=== PATIENT | male | born 1955 | race Two or more races ===

== ENCOUNTER 2025-03-15 16:29 | Emergency (ER) | payer MEDICARE, MEDICAID, SELFPAY ==
[2025-03-15] VITALS (9 sets, daily range): BP systolic 139–169; BP diastolic 83–98; PULSE 102–111; RESP 15–23; TEMP 37; O2SAT 93–98
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
--- NOTE | 2025-03-15 18:42 | PD.EDADDENDU ---
Emergency Room Addendum <Shahla Baig - Last Filed: 03/15/25 21:33> Addendum Narrative: 1800: Care assumed from Dr. Ennis (emergency physician). Past medical, surgical, social and family history reviewed. Vitals and home medications reviewed. Results and treatment plan discussed. I will assume the care of the patient at this time and will follow the patient, pending medical clearance (5150 Hold). The following addendum documentation note is intended to reflect any pending information, findings, or radiology results not included in the patient?s initial chart by the previous shift scribe. The patient had access and provided personal hygiene, shower, food, water, and daily medications. RADIOLOGY Findings: No significant ventricular enlargement. Again noted large old infarct in the right middle cerebral artery distribution with ipsilateral ventricular dilatation Small old infarct left cerebellar hemisphere Intra-axial or extra-axial hemorrhage density is not seen. No mass effect or midline shift Basal cisterns are not remarkable. Fourth ventricle is midline. Cranial vault intact. Impression: No interval acute hemorrhage, mass effect or midline shift As clinically warranted, brain MRI follow-up would best assess for acute ischemic change <Hood Mckeon DO - Last Filed: 03/15/25 23:58> Addendum Narrative: 1800: Care assumed from Dr. Ennis (emergency physician). Past medical, surgical, social and family history reviewed. Vitals and home medications reviewed. Results and treatment plan discussed. I will assume the care of the patient at this time and will follow the patient, pending medical clearance (5150 Hold). The following addendum documentation note is intended to reflect any pending information, findings, or radiology results not included in the patient?s initial chart by the previous shift scribe. The patient had access and provided personal hygiene, shower, food, water, and daily medications. RADIOLOGY Findings: No significant ventricular enlargement. Again noted large old infarct in the right middle cerebral artery distribution with ipsilateral ventricular dilatation Small old infarct left cerebellar hemisphere Intra-axial or extra-axial hemorrhage density is not seen. No mass effect or midline shift Basal cisterns are not remarkable. Fourth ventricle is midline. Cranial vault intact. Impression: No interval acute hemorrhage, mass effect or midline shift As clinically warranted, brain MRI follow-up would best assess for acute ischemic change Case was signed out to me by Dr. Hendrix. Patient is already on a 5150 hold for standing in traffic today. Patient is very combative and noncompliant and does not follow commands or answer questions simply. I am unsure whether or not this patient has a history of psychosis. We need to do a workup on this patient. Patient received 300 mg of ketamine IM which allowed us to establish an IV and draw blood obtain a urinalysis and a CAT scan of the brain. CAT scan of the brain was negative. Urinalysis showed no infection. Urinary tox screen was negative. Blood alcohol level is negative. There appears to be no organic cause for the patient's psychosis. hosted services analyst consult has been ordered for this patient's apparent psychotic state and probable need for psychiatric placement.
--- NOTE | 2025-03-15 19:18 | XR_ITS ---
Examination: CT brain head without contrast. 2-D sagittal coronal reconstructions Date and time of exam:March 15, 2025, and 195 hrs., Comparison May 11, 2023 Indications: Altered mental status today CTDI: vol (mGy):50.8 DLP: (mGycm):1081 Technique: Multiple CT axial sections of the brain have been obtained, 5 mm slice thickness. Contrast has not been administered. 2-D sagittal, coronal reconstructions have been obtained Low dose protocols were performed. One or more of the following dose reduction techniques were used; automated exposure control, adjustment of the mA and/or KV according to patient size, use of iterative reconstruction technique. Findings: No significant ventricular enlargement. Again noted large old infarct in the right middle cerebral artery distribution with ipsilateral ventricular dilatation Small old infarct left cerebellar hemisphere Intra-axial or extra-axial hemorrhage density is not seen. No mass effect or midline shift Basal cisterns are not remarkable. Fourth ventricle is midline. Cranial vault intact. Impression: No interval acute hemorrhage, mass effect or midline shift As clinically warranted, brain MRI follow-up would best assess for acute ischemic change
[2025-03-15] MEDS: KETAMINE 50 MG/ML VIAL 10 ML 300 MG IM (19:36)
[2025-03-15 19:56] LABS: Collection Type, Urine Clean Catch; Squamous Epithelial Cell,Urine 0 /hpf (0-5)
[2025-03-15 19:57] LABS: Basophils # (Auto) 0.0 Thou/mm3 (0.0-0.2); Basophils % (Auto) 0 % (0-2.5); Eosinophils # (Auto) 0.0 Thou/mm3 (0.0-0.5); Eosinophils % (Auto) 0 % (0-10); Hematocrit 45.9 % (41.0-53.0); Hemoglobin 15.3 g/dL (13.5-16.0); Immature Granulocytes Auto 0.03 Thou/mm3 (0.00-0.00); Lymphocytes # (Auto) 1.8 Thou/mm3 (1.0-4.8); Lymphocytes % (Auto) 16 % (10-50); Mean Corpuscular HGB Conc 33.3 g/dl (31.0-37.0); Mean Corpuscular Hemoglobin 30.7 pg (25.0-35.0); Mean Corpuscular Volume 92 fL (80-100); Monocytes # (Auto) 0.9 Thou/mm3 (0.0-0.8); Monocytes % (Auto) 8 % (0-12); Neutrophils # (Auto) 8.5 Thou/mm3 (1.8-7.7); Neutrophils % (Auto) 76 % (37-80); Nucleated Red Blood Cell # 0.00 Thou/mm3 (0.00-0.00); Nucleated Red Blood Cell % 0 /100 WBC (0); Platelet Count 175 Thou/mm3 (140-440); RDW Standard Deviation 43.9 fL (35.1-43.9); Red Blood Count 4.99 Miln/mm3 (4.50-5.90); White Blood Count 11.2 Thou/mm3 (3.8-10.6)
[2025-03-15 20:03] LABS: Amorphous Crystals,Urine Present (Absent); Bilirubin,Urine Negative (Negative); Blood,Urine 1+ (Negative); Clarity,Urine Turbid (Clear/Hazy); Color,Urine Yellow (Lt Yel-Yel); Culture Indicated,Urine Not Indicated; Glucose, Urine Negative (Negative); Ketones,Urine Negative (Negative); Leukocyte Esterase,Urine Negative (Negative); Nitrite,Urine Negative (Negative); PH,Urine 7.5 (5.0-7.0); Protein,Urine Negative (Neg - Trace); RBC,Urine 56 /hpf (0-3); Specific Gravity,Urine 1.024 (1.001-1.035); Urobilinogen,Urine Negative mg/dL (0.0-1.0); WBC,Urine 8 /hpf (0-5)
--- NOTE | 2025-03-15 20:07 | PC.NURSE ---
pt back in room from ct. EYES OPEN NORMAL REPSIRATIONS 3 POINT RESTRAINTS.
[2025-03-15 20:08] LABS: Amphetamine/Methamp Scrn,U Negative (Negative); Barbiturate Screen,Urine Negative (Negative); Benzodiazepines Screen,Urine Negative (Negative); Benzoylecgonine Screen, Ur Negative (Negative); Fentanyl Screen,Urine Negative (Negative); Opiate Screen,Urine Negative (Negative); THC Screen,Urine Negative (Negative)
[2025-03-15 20:24] LABS: Alanine Aminotransferase 15 U/L (10-49); Albumin, Serum 4.2 gm/dL (3.4-4.8); Albumin/Globulin Ratio 1.4 (1.2-2.2); Alcohol, Blood Medical < 3.0 mg/dL (0-10.0); Alkaline Phosphatase 99 U/L (46-116); Anion Gap 12 (7-16); Aspartate Amino Transferase 49 U/L (0-34); BUN/Creatinine Ratio 11 Ratio (12-20); Bilirubin,Total 1.0 mg/dL (0.3-1.2); Blood Urea Nitrogen 12 mg/dL (9-23); Calcium 10.3 mg/dL (8.3-10.6); Calcium (Corrected) 10.3 mg/dL (8.5-10.1); Carbon Dioxide 25.7 mMol/L (20.0-31.0); Chloride 110 mMol/L (98-107); Creatinine (Component) 1.1 mg/dL (0.6-1.3); Globulin 2.9 gm/dL (2.3-3.5); Glucose 109 mg/dL (74-106); Osmolality,Calculated 294 (275-295); Potassium 3.9 mMol/L (3.4-5.1); Sodium 148 mMol/L (136-145); Total Protein 7.1 gm/dL (5.7-8.2); eGFR > 60 See Note
--- NOTE | 2025-03-15 23:15 | PC.NURSE ---
pt awake alert comfortable not being aggressive. doctor okd to stop restraints.
[2025-03-16] VITALS: BP 161/97; PULSE 98; RESP 18; O2SAT 98
--- NOTE | 2025-03-16 01:05 | PC.NURSE ---
ATTEMPTED TO GET VS ON PT. PT BECAME HIGHLY AGITATED, BEGAN KICKING AND HITTING STAFF. ATTEMPTED TO REDIRECT THE PT, AND PT WAS NOT COOPERATING. MD INFORMED, NEW ORDERS GIVEN.
[2025-03-16] MEDS: HALOPERIDOL LACT INJ 5 MG/ML VIAL IM (01:10)
[2025-03-16 01:40] VITALS: BP 151/71; PULSE 117; RESP 20; TEMP 36.6; O2SAT 93
[2025-03-16 05:47] VITALS: BP 164/95; PULSE 104; RESP 19; TEMP 36.9; O2SAT 95
[2025-03-16 08:00] VITALS: BP 156/90; PULSE 102; RESP 16; TEMP 36.4; O2SAT 96
[2025-03-16 10:00] VITALS: BP 151/95; PULSE 99; RESP 16; TEMP 36.4; O2SAT 94
--- NOTE | 2025-03-16 10:39 | PC.CC ---
0900-Pt is a 69 yo male who was BIBA due to being on a 5150 DTS by Felipe ESTRADA. ASW sEtrella Mahajan met with patient [id number] to complete assessment. ASW introduced self, role, and reason for assessment. ASW disclosed limits of confidentiality as well. Patient appeared alert and oriented to self, place, and situation. Patient was pleasant; his mood nervous; his behavior appeared worried. Patient?s thought process was somewhat linear and organized, but he did seem confused. No signs of delusions, paranoid or V/h. Pt denied SI/HI. Pt stated he does not remember why he was brought to the hospital. Pt reports he lives alone. Present was pts caregiver (family member) who reported he is his SS worker. The caregiver stated he does all the cooking, cleaning and grooming for the pt. Pt was viewed to be taken care of well and clean. The skin care consultant reported that he takes care of the pt daily from 8am-1pm. The skin care consultant stated that the pt left the home, after the caregiver left, and went on his wheel chair to the nearest school. Caregiver reported that the family was notified that the pt was on a 5150 Hold due to DTS. The caregiver stated he, his and brother in law will make a decision on possible SNF placement vs. home health. Caregiver stated the pt has dementia and suffered stroke a few years ago. Since the stroke, the pt has not been the same, according to the caregiver. The pt was aware where he is at, but was unsure how he got there. Pt was communicating throughout the assessment, but at times would not make sense. Pt strongly denies SI/HI and self harm. Pt denies illicit controlled substance use. ASW staffed this case with [facility], Director Carlin Maldonado and it was determined that the hold will be rescinded and a discussion about SNF vs. Home Health needs to be discussed for the safety of the pt. ASW communicated with the ER provider and he agreed. Assigned RN is aware as well as the data entry operator.
--- NOTE | 2025-03-16 11:00 | EDNOTE_ITS ---
Emergency Room Addendum Addendum Narrative: 0600: Care assumed from Dr. Mckeon, the previous shift emergency physician. Past medical, surgical, social and family history reviewed. Vitals and home medications reviewed. I will assume the care of the patient at this time, pending mental health evaluation and final disposition. Please refer to the emergency department record for history and examination from initial visit.?The following addendum documentation note is intended to reflect any pending information, findings, or radiology results not included in the patient?s initial chart. Patient has been evaluated by our social media campaign manager and rescinded the 5150 hold. States patient has been provided with community resources. Will DC home.
--- NOTE | 2025-03-16 11:03 | PC.CC ---
Addendum entered by Estrella Mahajan 03/16/25 12:30: 1145-ASW met with pt and pts son at bedside to discuss the possibility of SNF vs. Home Health. Per pts son, he stated he and his family will make that decision and he could not make that decision on his own. pts son stated he, his and sister as well as the advanced practice rn provide around the clock care for the pt, but stated it is getting more and more difficult. ASW explained home health, adult day care services and provided additional resources from local SNF facilities. Pt was present and understood the conversation. Assigned RN is aware as well. Addendum entered by Estrella Mahajan 03/16/25 11:11: 1110-Assigned RN is aware of the conversation between pt and caregiver regarding SNF vs Home health. Caregiver is willing to take the pt home. Pt is cleared from SS. Addendum entered by Estrella Mahajan 03/16/25 11:07: 1045-ASW attempted to contact the pts children who are listed on the face sheet to discuss possible SNF vs. Home health, but no one answered and the voicemails were not set up, could not leave a voice message Original Note: 0900-Pt is a 69 yo male who was BIBA due to being on a 5150 DTS by Felipe ESTRADA. ASW Estrella Mahajan met with patient [id number] to complete assessment. ASW introduced self, role, and reason for assessment. ASW disclosed limits of confidentiality as well. Patient appeared alert and oriented to self, place, and situation. Patient was pleasant; his mood nervous; his behavior appeared worried. Patient?s thought process was somewhat linear and organized, but he did seem confused. No signs of delusions, paranoid or V/h. Pt denied SI/HI. Pt stated he does not remember why he was brought to the hospital. Pt reports he lives alone. Present was pts caregiver (family member) who reported he is his SS worker. The caregiver stated he does all the cooking, cleaning and grooming for the pt. Pt was viewed to be taken care of well and clean. The healthcare administrator reported that he takes care of the pt daily from 8am-1pm. The healthcare administrator stated that the pt left the home, after the caregiver left, and went on his wheel chair to the nearest school. Caregiver reported that the family was notified that the pt was on a 5150 Hold due to DTS. The caregiver stated he, his and brother in law will make a decision on possible SNF placement vs. home health. Caregiver stated the pt has dementia and suffered stroke a few years ago. Since the stroke, the pt has not been the same, according to the caregiver. The pt was aware where he is at, but was unsure how he got there. Pt was communicating throughout the assessment, but at times would not make sense. Pt strongly denies SI/HI and self harm. Pt denies illicit controlled substance use. ASW staffed this case with [facility], Director Carlin Maldonado and it was determined that the hold will be rescinded and a discussion about SNF vs. Home Health needs to be discussed for the safety of the pt. ASW communicated with the ER provider and he agreed. Assigned RN is aware as well as the decorating inspector. HOLD RESCINDED.
== END 2025-03-16 12:41 | disposition home or self-care (01) ==
PROVIDERS: Emergency Medicine; Emergency Provider Family Medicine; PCP Family Medicine
DX: F23 Brief psychotic disorder (principal); Z91.199 Patient's noncompliance with other medical treatment and regimen due to unspecified reason; I69.354 Hemiplegia and hemiparesis following cerebral infarction affecting left non-dominant side
CPT/HCPCS: 36415; 70450; 80053; 80307; 80320; 81001; 85025; 96127; 96372; 99284; J1630; G0480